=== PATIENT | male | born 1955 | race Hispanic/Latino ===

== ENCOUNTER 2020-07-21 18:37 | Emergency (ER) | payer OTHER ==
[2020-07-21] MEDS ORDERED: IBUPROFEN 800 MG TAB PO ONE (20:23)
[2020-07-21] MEDS ORDERED: cloNIDine 0.1 MG TAB PO ONE (23:09)
[2020-07-21] MEDS ORDERED: IBUPROFEN 800 MG TAB ONE (23:14)
--- NOTE | 2020-07-22 00:06 | Emergency Department Report ---
ED General Adult HPI - General Chief complaint: High BP Stated complaint: HYPERTENSION Time Seen by Provider: 07/21/20 22:54 Source: patient Mode of arrival: Stretcher Limitations: Language Barrier - History of Present Illness Initial comments: Patient is a 64-year-old male with a past medical history of hypertension who took his blood pressure today secondary to having some slight headache and his blood pressure was 160 systolic. Patient states his blood pressure is normally very well controlled. Patient exercises and tries to control his diet. Patient states he took his blood pressure several times afterwards and each time his blood pressure was higher until his blood pressure reached 200 systolic. Patient called paramedics patient denies any chest pain shortness of breath or focal neurological deficits. States the headache was 6 out of 10 in severity at its worst and is a 3 out of 10 currently. When asked head the patient had any change in his diet he did state he ate some beans and rice out of a can from [employer]. Patient states he is never had this before. He ate this earlier in the day. Severity scale (0 -10): 4 - Related Data Allergies Allergy/AdvReac Type Severity Reaction Status Date / Time No Known Allergies Allergy Unverified 07/21/20 20:18 ED Review of Systems ROS: Stated complaint: HYPERTENSION Other details as noted in HPI Comment: All other systems reviewed and negative ED Past Medical Hx - Past Medical History Previous Medical History?: Yes Hx Hypertension: Yes - Social History Smoking Status: Never Smoker Substance Use Type: None ED Physical Exam - General Limitations: Language Barrier General appearance: alert, in no apparent distress - Head Head exam: Present: atraumatic, normocephalic - Eye Eye exam: Present: normal appearance, PERRL, EOMI - ENT ENT exam: Present: mucous membranes moist - Neck Neck exam: Present: normal inspection - Respiratory Respiratory exam: Present: normal lung sounds bilaterally. Absent: respiratory distress, wheezes, rales, rhonchi - Cardiovascular Cardiovascular Exam: Present: regular rate, normal rhythm, normal heart sounds. Absent: systolic murmur, diastolic murmur, rubs, gallop - GI/Abdominal GI/Abdominal exam: Present: soft, normal bowel sounds. Absent: distended, tenderness, guarding, rebound, rigid - Rectal Rectal exam: Present: deferred - Extremities Exam Extremities exam: Present: normal inspection - Back Exam Back exam: Present: normal inspection - Neurological Exam Neurological exam: Present: alert, oriented X3 - Psychiatric Psychiatric exam: Present: normal affect, normal mood - Skin Skin exam: Present: warm, dry, intact, normal color. Absent: rash ED Course Vital Signs 07/21/20 07/21/20 07/21/20 20:10 23:10 23:15 Temperature 98.5 F 98.7 F Pulse Rate 106 H 81 Respiratory 18 18 18 Rate Blood Pressure 175/112 Blood Pressure 158/96 [Left] O2 Sat by Pulse 96 97 Oximetry 07/21/20 07/21/20 07/21/20 23:16 23:31 23:45 Temperature Pulse Rate 77 87 77 Respiratory Rate Blood Pressure 158/96 145/84 149/86 Blood Pressure [Left] O2 Sat by Pulse 97 96 Oximetry ED Medical Decision Making - Medical Decision Making Patient given 0.1 of [place] and his blood pressure is improving dramatically. Patient is asymptomatic at this time. Patient urged to not use that brand of food again and in general to try to avoid canned foods altogether. Patient safe for discharge Critical care attestation.: If time is entered above; I have spent that time in minutes in the direct care of this critically ill patient, excluding procedure time. ED Disposition Clinical Impression: Hypertensive urgency, Anxiety reaction Disposition: DC-01 TO HOME OR SELFCARE Is pt being admited?: No Does the pt Need Aspirin: No Condition: Stable Instructions: Hypertension (ED) Referrals: PRIMARY CARE, [Primary Care Provider] - 3-5 Days Time of Disposition: 00:06
[2020-07-22 00:48] VITALS: BP 148/81
== END 2020-07-22 00:37 | disposition home or self-care (01) ==
LOC: ED 18:37
DX: I16.0 Hypertensive urgency (principal); F41.9 Anxiety disorder, unspecified; Z79.899 Other long term (current) drug therapy
CPT/HCPCS: 99283